=== PATIENT | female | born 1995 | race Caucasian/White ===

== ENCOUNTER 2023-01-11 15:31 | Inpatient (IN) | payer OTHER ==
[~2023-01-11] VITALS: Ht 170.2 cm; Wt 54.4 kg
[2023-01-11] MEDS ORDERED: ONDANSETRON 4 MG/2 ML VIAL IV ONE (15:45)
[2023-01-11] MEDS ORDERED: IV NORMAL SALINE 1000 ML BAG IV ONE ×2 (15:45→19:00)
[2023-01-11] MEDS ORDERED: ONDANSETRON 4 MG/2 ML VIAL ONE (15:58)
[2023-01-11 15:59] LABS: HEMATOCRIT 40.4 % (31.2-41.9); MEAN CORPUSCULAR HEMOGLOBIN 30.8 uug (24.7-32.8); PLATELET COUNT (AUTO) 234 K/uL (179-408)
[2023-01-11] MEDS ORDERED: MAG HYDROX/AL HYDROX/SIMETH 30 ML LIQUID UDC PO ONE (16:15)
[2023-01-11] MEDS ORDERED: LIDOCAINE VISCUS 2% 15 ML UDC MM ONE (16:15)
[2023-01-11] MEDS ORDERED: FAMOTIDINE. 20 MG/2 ML VIAL IV ONE ×2 (16:15→16:25)
[2023-01-11 16:16] LABS: BILIRUBIN,DIRECT 0.2 mg/dL (0.0-0.2); BILIRUBIN,TOTAL 0.6 mg/dL (0.2-1.0); CREATININE 0.9 mg/dL (0.6-1.3); POTASSIUM 3.5 mmol/L (3.5-5.1); TOTAL PROTEIN, SERUM 8.1 g/dL (6.4-8.2)
[2023-01-11] MEDS ORDERED: LIDOCAINE VISCUS 2% 15 ML UDC ONE (16:24)
[2023-01-11] MEDS ORDERED: MAG HYDROX/AL HYDROX/SIMETH 30 ML LIQUID UDC ONE (16:25)
[2023-01-11] MEDS ORDERED: ONDA4TAB5 PO (17:15)
[2023-01-11] MEDS ORDERED: FAMO-132 PO (17:15)
[2023-01-11] MEDS ORDERED: NALO4SPR BNOSTRILS (17:16)
[2023-01-11] MEDS ORDERED: METOCLOPRAMIDE HCL 10 MG/2 ML VIAL IV ONE (17:45)
[2023-01-11] MEDS ORDERED: diphenhydrAMINE 50 MG/1 ML VIAL IV ONE (17:45)
[2023-01-11 17:51] LABS: *BILIRUBIN,URIN 2+ (NEGATIVE); *BLOOD, URINE NEGATIVE (NEGATIVE); *CLARITY,URINE CLEAR (CLEAR); *COLOR,URINE YELLOW (YELLOW); *KETONES,URINE 1+ (NEGATIVE); LEUKOCYTE ESTERASE ,URINE NEGATIVE (NEGATIVE); NITRITE, URINE NEGATIVE (NEGATIVE); PH,URINE 7.5 (5.0-8.0); UGLUCOSE NEGATIVE (NEGATIVE)
[2023-01-11 17:52] LABS: *URINE HCG, QUAL NEG (NEGATIVE)
[2023-01-11] MEDS ORDERED: METOCLOPRAMIDE HCL 10 MG/2 ML VIAL ONE (18:44)
[2023-01-11] MEDS ORDERED: diphenhydrAMINE 50 MG/1 ML VIAL ONE (18:44)
[2023-01-11] MEDS ORDERED: AMOX-430 PO (18:51)
[2023-01-11] MEDS ORDERED: HYDROMORPHONE 1 MG/1 ML DISP.SYRIN IV PRN (23:45)
[2023-01-11] MEDS ORDERED: ACETAMINOPHEN 650 MG SUPP.RECT RC PRN (23:45)
[2023-01-11] MEDS ORDERED: ONDANSETRON 4 MG/2 ML VIAL IV PRN (23:45)
[2023-01-12] VITALS (8 sets, daily range): BP systolic 114–154; BP diastolic 61–90
[2023-01-12] MEDS: IV D5/ 0.9% NACL 1,000 ML IV PRN ×2 (00:09→12:27)
[2023-01-12 07:27] LABS: HEMATOCRIT 33.7 % (31.2-41.9); MEAN CORPUSCULAR HEMOGLOBIN 31.3 uug (24.7-32.8); PLATELET COUNT (AUTO) 170 K/uL (179-408)
[2023-01-12 08:02] LABS: BILIRUBIN,TOTAL 0.4 mg/dL (0.2-1.0); CREATININE 0.7 mg/dL (0.6-1.3); MAGNESIUM 1.9 mg/dL (1.8-2.4); PHOSPHOROUS 2.1 mg/dL (2.5-4.9); POTASSIUM 3.4 mmol/L (3.5-5.1); TOTAL PROTEIN, SERUM 6.4 g/dL (6.4-8.2)
[2023-01-12] MEDS: PANTOPRAZOLE SODIUM 40 MG VIAL IV SCH (08:38)
[2023-01-12] MEDS: POTASSIUM CHLORIDE 50 ML IV SCH ×2 (11:29→12:30)
[2023-01-12] MEDS: HYDROMORPHONE 1 MG/1 ML DISP.SYRIN IV PRN ×2 (14:01→18:34)
[2023-01-12] MEDS ORDERED: SODIUM PHOSPHATE MM 15 MMOL in IV NORMAL SALINE 250 ML IV ONE (16:00)
[2023-01-13 04:18] VITALS: BP 122/69
[2023-01-13] MEDS: PANTOPRAZOLE SODIUM 40 MG VIAL IV SCH (08:38)
[2023-01-13 09:20] LABS: HEMATOCRIT 32.4 % (31.2-41.9); MEAN CORPUSCULAR HEMOGLOBIN 30.7 uug (24.7-32.8); MEAN CORPUSCULAR VOLUME 89.6 fL (75.5-95.3); PLATELET COUNT (AUTO) 156 K/uL (179-408)
[2023-01-13 09:38] LABS: BILIRUBIN,DIRECT 0.2 mg/dL (0.0-0.2); BILIRUBIN,TOTAL 0.6 mg/dL (0.2-1.0); CREATININE 0.7 mg/dL (0.6-1.3); MAGNESIUM 1.9 mg/dL (1.8-2.4); PHOSPHOROUS 2.6 mg/dL (2.5-4.9); TOTAL PROTEIN, SERUM 6.3 g/dL (6.4-8.2)
[2023-01-13] MEDS: POTASSIUM CHLORIDE 10 MEQ TAB.PRT.SR PO SCH ×2 (10:27→12:48)
[2023-01-13] MEDS ORDERED: NICOTINE 21 MG/24HR PATCH TD SCH (10:30)
[2023-01-13] MEDS: HYDROMORPHONE 1 MG/1 ML DISP.SYRIN IV PRN (11:06)
[2023-01-13] MEDS ORDERED: ONDA4TAB5 PO (14:05)
[2023-01-13 15:04] VITALS: BP 120/60
== END 2023-01-13 16:30 | disposition home or self-care (01) ==
LOC: ER 15:31 → MEDSURG3 22:57
PROVIDERS: ADMIT Internal Medicine; ATTEND Nurse Practitioner Family
DX: K80.80 Other cholelithiasis without obstruction (principal); E87.1 Hypo-osmolality and hyponatremia; E87.6 Hypokalemia; F11.10 Opioid abuse, uncomplicated; R11.2 Nausea with vomiting, unspecified; J45.909 Unspecified asthma, uncomplicated; Z90.49 Acquired absence of other specified parts of digestive tract; Z88.2 Allergy status to sulfonamides; Z87.891 Personal history of nicotine dependence; R73.9 Hyperglycemia, unspecified; Z86.16 Personal history of COVID-19
CPT/HCPCS: 36415; 78445; 83690; 83735; 84100; 84703; 85025; A4663; A9537; C9113; G0378; J1170; J1200; J2405; J2765; J3480; J3490; J7040; J7042